=== PATIENT | male | born 1965 | race Two or more races ===

== ENCOUNTER 2021-05-03 23:45 | Inpatient (IN) | payer OTHER ==
[~2021-05-03] VITALS: Ht 170.2 cm; Wt 90.7 kg
[2021-05-04] MEDS ORDERED: BRILINTA90 MG (00:02)
[2021-05-04] MEDS ORDERED: TOPROL XL50 M1 (00:02)
[2021-05-04] MEDS ORDERED: LASIX20 MG (00:03)
[2021-05-04] MEDS ORDERED: ALPRAZOLAM ODT2 MG (00:03)
[2021-05-04] MEDS ORDERED: PRILOSEC OTC20 MG (00:03)
[2021-05-04] MEDS ORDERED: XARELTO10 MG (00:03)
[2021-05-04] MEDS ORDERED: ENTRESTO 24 MG1 EACH (00:04)
[2021-05-04] MEDS ORDERED: CARVEDILOL ER40 MG (00:04)
[2021-05-04] MEDS ORDERED: OXYCODONE HCL E10 MG (00:04)
--- NOTE | 2021-05-04 00:15 | NUR ---
SE RECIBE PTE ALERTA Y ORIENTADO POR MIGDALIA, AMBULANDO CON DIFICULTAD. PTE RERFIERE PRESENTAR DOLOR EN EL PECHO, ESPALDA CONRADO, BRAZO JOSE, DIFICULTAD RESPIRATORIA Y MAREO DESDE HACE YAYA HORA. SE LE REALIZA A PTE EKG Y SE LE PRESENTA A DR. NGUYEN. SE COLOCA A PTE EN AREA DE CHEST PAIN CONECTADO A MONITOR CARDIACO Y OXIMETRIA DE PULSO.
--- NOTE | 2021-05-04 00:30 | NUR ---
SE ORIENTA AL PACIENTE SOBRE EL TX. SE COLOCA MONITOR CARDIACO Y OXIMETRIA DE PULSO. SE EXTRAEN MUESTRAS DE JOÃO BAJO MEDIDAS ASEPTICAS, SE ROTULAN Y ENVIAN AL LABORATORIO. SE CANALIZA Y ADMINISTRAN MEDICAMENTOS CHRIS ORDEN MEDICA. SE NOTIFICA XRAY PORTABLE.
--- NOTE | 2021-05-04 03:39 | NUR ---
SE EXTRAE 2DO SET DE TROPONINA BAJO MEDIDAS ASEPTICAS , SE ROTULA Y ENVIA AL LABORATORIO. MUESTRA DE COVID TOMADA Y ENVIADA AL LABORATORIO
--- NOTE | 2021-05-04 08:16 | NUR ---
SE RECIBE PTE MASCULINO DE 55 YRS ALERTA CONCIENTE Y TRANQUILO EN CAMA EN LA UNIDAD DE CHEST PAIN . PTE CONECTADO A MONITOR CARDIACO Y OXIMETRIA. PTE CONSULTADO CON EL SHAE BAUTISTA. SE LE KAREN S/V LA CUAL SE DOCUEMTA.PTE REFIERE LEVE DOLOR DE PECHO . SE LE INFORMA A EL DR, RENTA LA CUAL LE ORDENA MEDICAMNTOS DE MORFINA 4 MG IV. LA CUAL SE LE ADMINISTRA. SE LE REPITE MUESTRA DE TROPONINA Y SE OBSERVA POR CAMBIO EN GANNON CONDICION.
== END 2021-05-05 20:31 | disposition left against medical advice (07) | DRG 291 ==
LOC: ER 23:45 → MEDI 05-04 13:18
PROVIDERS: ADMIT Internal Medicine; ATTEND Internal Medicine
PROC: 4A12X4Z Monitoring of Cardiac Electrical Activity, External Approach (ICD-10-PCS; principal; 2021-05-04)
DX: I11.0 Hypertensive heart disease with heart failure (principal); I50.23 Acute on chronic systolic (congestive) heart failure; I24.9 Acute ischemic heart disease, unspecified; R07.89 Other chest pain; Z20.822 Contact with and (suspected) exposure to COVID-19; E78.49 Other hyperlipidemia